=== PATIENT | female | born 1970 | race Two or more races ===

== ENCOUNTER 2021-09-25 09:57 | Emergency (ER) | payer OTHER ==
[~2021-09-25] VITALS: Ht 167.6 cm; Wt 103.4 kg
[2021-09-25] MEDS ORDERED: TETANUS-DIPTH-ACEL PERTUSSIS 0.5ML SYR Tdap IM ONE (14:15)
[2021-09-25 14:51] VITALS: BP 127/83
== END 2021-09-25 15:10 | disposition home or self-care (01) ==
LOC: ER 09:57
DX: S60.417A Abrasion of left little finger, initial encounter (principal); W26.0XXA Contact with knife, initial encounter; Y93.89 Activity, other specified; Y92.89 Other specified places as the place of occurrence of the external cause; Y99.8 Other external cause status
CPT/HCPCS: 73140; 90471; 90715